=== PATIENT | male | born 1960 | race Caucasian/White ===

== ENCOUNTER 2017-09-01 15:36 | Emergency (ER) | payer OTHER ==
[~2017-09-01] VITALS: Ht 175.3 cm; Wt 104.5 kg
[2017-09-01] MEDS ORDERED: ATOR10TA84 PO (15:43)
[2017-09-01] MEDS ORDERED: [UNRECOGNIZED DRUG - REMARK] PO (15:43)
[2017-09-01] MEDS ORDERED: insulin SQ (15:43)
[2017-09-01 15:58] LABS: GLUCOSE,POINT OF CARE 149 MG/DL (70-110)
[2017-09-01] MEDS ORDERED: BACITRACIN 0.9 GM PACKET OINTMENT TP ONE (16:15)
[2017-09-01] MEDS ORDERED: PERTUSS(ACELL),DIPH,TET VAC/PF 0.5 ML VIAL IM ONE (16:15)
[2017-09-01] MEDS ORDERED: LIDOCAINE HCL 1%/EPI 1:200,000/PF 30 ML VIAL INJ ONE (16:15)
[2017-09-01 17:59] VITALS: BP 129/77
== END 2017-09-01 18:05 | disposition home or self-care (01) ==
LOC: EMS 15:37
DX: S51.812A Laceration without foreign body of left forearm, initial encounter (principal); R03.0 Elevated blood-pressure reading, without diagnosis of hypertension; E11.9 Type 2 diabetes mellitus without complications; E78.00 Pure hypercholesterolemia, unspecified; Z79.4 Long term (current) use of insulin; W26.0XXA Contact with knife, initial encounter; Y93.89 Activity, other specified; Y92.89 Other specified places as the place of occurrence of the external cause; Y99.8 Other external cause status
CPT/HCPCS: 12002; 82962; 90471; 90715; 99283; J3490